=== PATIENT | female | born 2005 | race Native Hawaiian/Other Pacific Islander ===

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

== ENCOUNTER 2024-09-16 12:05 | Emergency (ER) | payer BC, SELFPAY ==
[2024-09-16 12:12] VITALS: BP 113/66; PULSE 98; RESP 18; TEMP 36.9; O2SAT 98; BMI 29.7
[2024-09-16 12:41] LABS: Strep Grp A by PCR Rapid Positive (Negative)
--- NOTE | 2024-09-16 13:12 | ED_ITS ---
<Statement entered by Flaco Gao DO - 09/16/24 13:43> Dr. Gao: I was immediately available in the department for consultation. I did not actually see the patient. HPI - URI/Sore Throat General Chief Complaint: Upper Respiratory Symptoms Stated Complaint: Swollen Lymph Nodes Time Seen by Provider: 09/16/24 12:56 Source: patient Mode of arrival: Ambulatory History of Present Illness HPI Narrative: Ms. Guevara is a pleasant 19-year-old female with no reported past medical history or allergies who presents to the emergency department with her boyfriend for evaluation of sore throat and swollen lymph nodes x6 days. Her boyfriend instructed for the same symptoms. States they both had cold-like symptoms however her throat has continued to hurt worse and she is feeling some swollen lymph nodes in her neck. Still able to drink liquids, speak clearly, and tolerate her own secretions. No fever vomiting or diarrhea. Related Data Previous Rx's Medication Instructions Recorded dicyclomine 20 mg tablet 20 mg PO TID #30 tabs 10/03/23 ondansetron 4 mg disintegrating 4 mg PO Q8H PRN nausea and 10/03/23 tablet vomiting #30 tabs amoxicillin 500 mg capsule 500 mg PO Q12H 10 days #20 caps 09/16/24 Allergies Allergy/AdvReac Type Severity Reaction Status Date / Time bee venom protein (honey bee) Allergy Severe Anaphylaxis Verified 06/20/23 13:38 adhesive tape Allergy Rash Verified 09/16/24 12:12 Review of Systems Review of Systems ROS Unobtainable: All systems reviewed & are unremarkable except as noted in HPI and below Patient History Social History Smoking Status: Never smoker Smoking Status: Never smoker Exam Narrative Exam Narrative: GENERAL: 19 year old patient appears stated age. Well-developed patient, in no acute distress. HEAD: Atraumatic. Normocephalic. EYES: Extraocular motions intact. No scleral icterus. No injection or drainage. ENT: Nose without bleeding, purulent drainage. Posterior oropharynx is brightly erythematous with mild tonsillar hypertrophy and bilateral exudates. Airway patent. No drooling. Floor of mouth and submandibular region soft without swelling. NECK: Trachea midline. Cervical ROM intact. Mild bilateral cervical lymphadenopathy palpable. CARDIOVASCULAR: Regular rate and rhythm. RESPIRATORY: ?Nonlabored respirations. ?Speaking in clear, full sentences. ?Clear to auscultation. Breath sounds equal bilaterally. No wheezes, rales, or rhonchi. ? NEURO: AOx3. ?Clear speech. ?Moves all 4 extremities appropriately. SKIN: No rash or erythema of visible areas Initial Vital Signs Initial Vital Signs: Vital Signs Temperature 98.4 F 09/16/24 12:12 Pulse Rate 98 H 09/16/24 12:12 Respiratory Rate 18 09/16/24 12:12 Blood Pressure 113/66 09/16/24 12:12 Pulse Oximetry 98 09/16/24 12:12 Oxygen Delivery Method Room Air 09/16/24 12:12 Course Orders Ordered: ED Orders 09/16/24 12:17 Strep Grp A by PCR Rapid Stat Discontinued Medications Dexamethasone (Dexamethasone 10 Mg/Ml Vial) 10 mg PO NOW ONE Stop: 09/16/24 13:07 Vital Signs Vital signs: Vital Signs - 8 hr 09/16/24 12:12 Temperature 98.4 F Pulse Rate 98 H Respiratory Rate 18 Blood Pressure 113/66 Pulse Oximetry 98 Oxygen Delivery Method Room Air MDM - URI/Sore Throat Medical Records Attestation: I reviewed the patient's medical records. Lab Data Labs: Lab Results 09/16/24 Range/Units 12:17 Group A Strep (PCR) Positive H (Negative) MDM Narrative Medical decision making narrative: 19-year-old female with no reported past medical history or allergies who prese nts to the emergency department with her boyfriend for evaluation of sore throat and swollen lymph nodes x6 days. Differential diagnosis includes but is not limited to viral pharyngitis, strep pharyngitis, mono, tonsillitis, etc. On exam patient is in no acute distress, nontoxic appearing, vital signs appropriate. She is posterior oropharyngeal erythema and tonsillar exudates. A strep swab was obtained in triage and is positive. Her oropharynx is widely patent, no unilateral swelling, tolerating her own secretions and speaking in a clear voice. We will treat inflammation and swelling with Decadron in the ED, she was prescribed amoxicillin 500 mg b.i.d. times 10 days and recommended ibuprofen, Tylenol, rest, hydration warm tea with honey, changing out her toothbrush in 24 hours. We discussed strict ED return precautions. Patient verbalized understanding of all information is agreeable to plan. She is stable for discharge home antibiotics sent to pharmacy of choice. Discharge Plan Departure Patient Disposition: Home Clinical Impression: Strep pharyngitis Instructions: DI for Strep Throat Activity Restrictions/Additional Instructions: Thank you for coming into the emergency department today. Today you tested positive for strep throat. This is a bacterial infection of the throat that requires 10 days of antibiotics to be treated. It is very important to complete the full course of antibiotics use ibuprofen/Tylenol for pain and fevers, drink warm tea with honey and increase hydration. Please throat your toothbrush after about 24 hours and start using a new one. Please take Ibuprofen (Motrin/Advil) or Acetaminophen (Tylenol) for pain. These are available over the counter. You may take Ibuprofen 600 mg every 8 hours with food for pain. You may also take Acetaminophen 650 mg every 4-6 hours for pain. Do not exceed 3000 mg of Tylenol a day as this can cause liver damage. Do not drink alcohol with either of these medications. Please follow up with your primary care doctor within the next 2-3 days for ER follow-up. (If you do not have a PCP you can call [phone]. ?to schedule an appointment with an [facility] Primary Care Provider) IF YOU DEVELOP ANY NEW OR WORSENING SYMPTOMS, RETURN TO THE ER! Please read the attached instructions, they highlight more specific treatments and interventions for you at home. Thank you for letting me participate in your care, Nayla Benson PA-C Prescriptions: New amoxicillin 500 mg capsule 500 mg PO Q12H 10 Days Qty: 20 0RF No Action ondansetron 4 mg tablet,disintegrating 4 mg PO Q8H PRN (Reason: nausea and vomiting) Qty: 30 0RF dicyclomine 20 mg tablet 20 mg PO TID Qty: 30 0RF Referrals: Miscellaneous,Doctor, MD [Primary Care Provider] - Stand Alone Forms: Patient Portal/API/Survey
[2024-09-16] MEDS: DEXAMETHASONE 10 MG/ML VIAL PO (13:19)
[2024-09-16 13:39] VITALS: BP 112/71; PULSE 92; RESP 18; O2SAT 99
== END 2024-09-16 13:34 | disposition home or self-care (01) ==
PROVIDERS: Student in an Organized Health Care Education/Training Program; Emergency Provider Physician Assistant
DX: J02.0 Streptococcal pharyngitis (principal)
CPT/HCPCS: 87651; 99283; J1100

== ENCOUNTER → 2025-06-14 16:23 | Outpatient (CLI) | payer BC, SELFPAY ==
[2025-06-14 17:40] LABS: Free T3, Triiodothyronine Free 3.70 pg/mL (2.77-5.27); Free T4, Direct Thyroxine 0.97 ng/dL (0.78-2.19)
[2025-06-14 17:53] LABS: Thyroid Stimulating Hormone 0.802 uIU/mL (0.47-4.68)
[2025-06-17 15:08] LABS: Anti Thyroglobulin Antibody <1.0 IU/mL (0.0-0.9)
== END ==
PROVIDERS: PCP Student in an Organized Health Care Education/Training Program; Referring Provider Student in an Organized Health Care Education/Training Program; Visit Provider Student in an Organized Health Care Education/Training Program
DX: Z13.21 Encounter for screening for nutritional disorder (principal); Z83.49 Family history of other endocrine, nutritional and metabolic diseases
CPT/HCPCS: 36415; 84439; 84443; 84481; 86376; 86800

== ENCOUNTER → 2025-06-29 12:12 | Outpatient (CLI) | payer BC, SELFPAY ==
--- NOTE | 2025-06-29 12:15 | DI.US.S_ITS ---
US breast RT limited: 06/29/2025. BI-RADS: 3 CLINICAL: 19-year old female for right diagnostic breast ultrasound. Tyrer- Cuzick lifetime risk of 17.2%. No personal or first-degree family history of breast cancer. Current reported family history of breast cancer: maternal grandmother. The patient reports a palpable abnormality (1 month) in the right breast. PRIOR EXAMS: No prior examinations available. ULTRASOUND TECHNIQUE Right targeted breast ultrasound of the area of clinical interest and the axilla was performed with image documentation. Real-time almaraz scale imaging of the area of clinical interest was performed with image documentation. TISSUE COMPOSITION Right: Outer at 8:00, Retroareolar, measuring 0.9 x 0.5 x 0.8 cm: (b) Homogeneous-fibroglandular. ULTRASOUND FINDINGS Right: Outer at 8:00, Retroareolar, measuring 0.9 x 0.5 x 0.8 cm: Correlating with palpable lump there is an oval, circumscribed, hypoechoic mass that is parallel showing posterior acoustic enhancement. 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 Doppler shows only rim vascularity. Right: Axilla: No abnormal lymph nodes are seen in the axilla. IMPRESSION: Right (Mass): Outer at 8:00, Retroareolar, measuring 0.9 x 0.5 x 0.8 cm * Probably Benign. RECOMMENDATIONS Right: Outer at 8:00, Retroareolar * Six month followup with diagnostic ultrasound. COMMENTS: Findings and recommendations were conveyed to the patient during today's evaluation. Recommend also clinical follow up in the interim with instructions to return sooner for imaging if there is development of any clinically suspicious findings. OVERALL ASSESSMENT CATEGORY BI-RADS-3: Probably Benign. PRELIMINARILY ELECTRONICALLY SIGNED: Karla Smiley M.D. on 07/04/2025 at 02:06:04 PM PT ELECTRONICALLY SIGNED: Karla Smiley M.D. on 07/04/2025 at 02:07:06 PM PT Interpreting Station ID: [id number]
== END ==
LOC: US 12:14
PROVIDERS: PCP Student in an Organized Health Care Education/Training Program; Referring Provider Student in an Organized Health Care Education/Training Program; Visit Provider Student in an Organized Health Care Education/Training Program
DX: N63.13 Unspecified lump in the right breast, lower outer quadrant (principal)
CPT/HCPCS: 76642